=== PATIENT | female | born 1985 | race Caucasian/White ===

== ENCOUNTER 2022-03-20 09:45 | Outpatient (RCR) | payer OTHER, MEDICAID, SELFPAY ==
--- NOTE | 2022-01-30 15:59 | PT.OIE ---
Current Diagnoses Urge incontinence (01/30/22) Visit Care Team Role Provider Type Heydi Choi MD Attending Provider Physician Family Provider Primary Care Provider Referring Provider Specialty: Family Practice Address: [address] [place] [address], [facility] [place], [address] Email: [email or web address] Physical Therapy Initial Evaluation PT-OP-A Visit Information Start: 01/28/22 09:31 Freq: Status: Active Protocol: Document 01/30/22 09:45 AMB (Rec: 02/03/22 15:45 AMB [id number]) Out-Patient Physical Therapy Visit Information Visit Information Visit Type Initial Evaluation Visit Start Time 09:45 Visit Stop Time 10:30 Total Visit Minutes 45 Visit Number 1 PT-OP-B Current Condition Start: 01/28/22 09:31 Freq: Status: Active Protocol: Document 01/30/22 09:45 AMB (Rec: 02/07/22 15:58 AMB [id number]) Current Condition History of Current Condition Onset Date 08/27/2020 Current Complaints stress urinary incontinence History of Current Condition Valeri has had leaking after the of her second child 17 months ago. Denies prolonged pushing, did tear with her first vaginal delivery but not this one. She did have one recent UTI, but it is since resolved. She notes the leaking with a strong cough/ sneeze. Maybe 5 leaks per month. Personal Factors Other Personal Factors That May Effect Currently lactating Therapy/Recovery PT-OP-C Subjective Start: 01/28/22 09:31 Freq: Status: Active Protocol: Document 01/30/22 09:45 AMB (Rec: 02/07/22 15:58 AMB [id number]) Patient Questionnaires Pelvic Pain and Urgency/Frequency Patient Symptom Scale Pelvic Pain Score 11 PT-OP-I Pelvic Floor Start: 01/28/22 09:31 Freq: Status: Active Protocol: Document 01/30/22 09:45 AMB (Rec: 02/07/22 15:58 AMB [id number]) Pelvic Floor Assessment Urine Pelvic Floor Surgery No Leakage Size Small Leakage Cause Cough,Exercise,Sneeze Leaks Per Day 5/month Voiding Frequency 10/day Nocturia 1 Urine Pad Type Panty Liner Bowel Other Bowel Symptoms denies constipation Prolapse Prolapse Comments No prolapse visualized SEMG (uV) Baseline 1 Quick Contraction 14 Recruitment Pattern Good Relaxation Good Holding Good Stability of Hold Good SEMG Stability of Rest Good Contraction Ability Voluntary Contraction Moderate Voluntary Relaxation Moderate Manual Muscle Testing Left 3 Manual Muscle Testing Right 3 Manual Muscle Testing Anterior 3 Manual Muscle Testing Posterior 3 Muscle Endurance (Seconds) 4 Number of Quick Contractions In 10 4 Seconds PT-OP-T Assessment and Plan Start: 01/28/22 09:31 Freq: Status: Active Protocol: Document 01/30/22 09:45 AMB (Rec: 02/07/22 15:58 AMB [id number]) Physical Therapy Assessment Rehab Potential Rehabilitation Potential Good Evaluation Complexity Number of Personal Factors/Comorbidities 0 Number of Body Systems Impaired 1-2 Clinical Presentation at Evaluation Stable Impairments Impairments Functional Activities,Strength Goals Two Impairment Continence Short Term Goal (STG) Valeri will be able to cough without leaking urine. STG Duration 6 weeks One Impairment Strength Claim Service Representative Goal (LTG) Valeri will maintain a pelvic floor conraction for 10 seconds in standing to show improved pelvic floor strength . LTG Duration 12 weeks Assessment Summary Assessment Valeri attends physical therapy with urinary stress incontinence that has persisted for 17 months post . Her pelvic floor strenght was moderate with 3/5 stength and 14microhertz on biofeedback. She would benefit from further strengthening to progress her given the length of time her symptoms have been present. Physical Therapy Plan Frequency and Duration Frequency of Treatment 1x/Week Duration of Treatment 12 weeks Plan of Care Start Date 01/30/22 Plan of Care End Date 04/24/22 Therapeutic Interventions Therapeutic Interventions Home Exercise Program,Manual Therapy,Neuromuscular Re- education,Self-Care/Home Management,Therapeutic Activities,Therapeutic Exercises Modalities Biofeedback,Electric Stimulation Next Visit Focus/Plan Next Note Type Treatment Note Next Visit Plan continue biofeedback
--- NOTE | 2022-01-30 16:02 | PT.OPPOC ---
Physical, Occupational & Speech Therapy At [facility] Current Diagnoses Urge incontinence (01/30/22) Visit Care Team Role Provider Type Heydi Choi MD Attending Provider Physician Family Provider Primary Care Provider Referring Provider Specialty: Family Practice Address: [address] [place] [address], [id number] Email: [email or web address] Plan Of Care PT-OP-T Assessment and Plan Start: 01/28/22 09:31 Freq: Status: Active Protocol: Document 01/30/22 09:45 AMB (Rec: 02/07/22 15:58 AMB [id number]) Physical Therapy Assessment Rehab Potential Rehabilitation Potential Good Evaluation Complexity Number of Personal Factors/Comorbidities 0 Number of Body Systems Impaired 1-2 Clinical Presentation at Evaluation Stable Impairments Impairments Functional Activities,Strength Goals Two Impairment Continence Short Term Goal (STG) Valeri will be able to cough without leaking urine. STG Duration 6 weeks One Impairment Strength Group Home Goal (LTG) Valeri will maintain a pelvic floor conraction for 10 seconds in standing to show improved pelvic floor strength . LTG Duration 12 weeks Assessment Summary Assessment Valeri attends physical therapy with urinary stress incontinence that has persisted for 17 months post . Her pelvic floor strength was moderate with 3/5 strength and 14microhertz on biofeedback. She would benefit from further strengthening to progress her given the length of time her symptoms have been present. Physical Therapy Plan Frequency and Duration Frequency of Treatment 1x/Week Duration of Treatment 12 weeks Plan of Care Start Date 01/30/22 Plan of Care End Date 04/24/22 Therapeutic Interventions Therapeutic Interventions Home Exercise Program,Manual Therapy,Neuromuscular Re- education,Self-Care/Home Management,Therapeutic Activities,Therapeutic Exercises Modalities Biofeedback,Electric Stimulation Next Visit Focus/Plan Next Note Type Treatment Note Next Visit Plan continue biofeedback Plan of Care Dates Plan of Care Start Date 01/30/22 Plan of Care End Date 04/24/22 Electronically Signed by: Marii Rodriguez, PT 02/07/22 0308 If you are in agreement with this Plan of Care, please return a signed and dated copy. I have reviewed this Plan of Care and certify that the skilled therapy services above are required to meet the patient?s needs. Physician Signature Date Printed Name and Credentials Clinical Instructor Signature Printed Name and Credentials
--- NOTE | 2022-02-27 16:37 | PT.OTN ---
Current Diagnoses Urge incontinence (02/27/22) Physical Therapy Treatment Note PT-OP-A Visit Information Start: 01/28/22 09:31 Freq: Status: Active Protocol: Document 02/27/22 09:46 AMB (Rec: 02/27/22 10:30 AMB [id number]) Out-Patient Physical Therapy Visit Information Visit Information Visit Type Treatment Note Visit Start Time 09:45 Visit Stop Time 10:30 Total Visit Minutes 45 Visit Number 2 PT-OP-B Current Condition Start: 01/28/22 09:31 Freq: Status: Active Protocol: Document 01/30/22 09:45 AMB (Rec: 02/07/22 15:58 AMB [id number]) Current Condition History of Current Condition Onset Date 08/27/2020 Current Complaints stress urinary incontinence History of Current Condition Vaelri has had leaking after the of her second child 17 months ago. Denies prolonged pushing, did tear with her first vaginal delivery but not this one. She did have one recent UTI, but it is since resolved. She notes the leaking with a strong cough/ sneeze. Maybe 5 leaks per month. Personal Factors Other Personal Factors That May Effect Currently lactating Therapy/Recovery PT-OP-C Subjective Start: 01/28/22 09:31 Freq: Status: Active Protocol: Document 02/27/22 09:46 AMB (Rec: 02/27/22 10:30 AMB [id number]) OP-PT Subjective Patient Comments Patient Comments Pt states things are going well, not noticing as much leaking more with just cough/ sneeze. PT-OP-I Pelvic Floor Start: 01/28/22 09:31 Freq: Status: Active Protocol: Document 01/30/22 09:45 AMB (Rec: 02/07/22 15:58 AMB [id number]) Pelvic Floor Assessment Urine Pelvic Floor Surgery No Leakage Size Small Leakage Cause Cough,Exercise,Sneeze Leaks Per Day 5/month Voiding Frequency 10/day Nocturia 1 Urine Pad Type Panty Liner Bowel Other Bowel Symptoms denies constipation Prolapse Prolapse Comments No prolapse visualized SEMG (uV) Baseline 1 Quick Contraction 14 Recruitment Pattern Good Relaxation Good Holding Good Stability of Hold Good SEMG Stability of Rest Good Contraction Ability Voluntary Contraction Moderate Voluntary Relaxation Moderate Manual Muscle Testing Left 3 Manual Muscle Testing Right 3 Manual Muscle Testing Anterior 3 Manual Muscle Testing Posterior 3 Muscle Endurance (Seconds) 4 Number of Quick Contractions In 10 4 Seconds PT-OP-Q Treatments Start: 01/28/22 09:31 Freq: Status: Active Protocol: Document 02/27/22 09:45 AMB (Rec: 02/27/22 16:37 AMB [id number]) Therapeutic Exercises Sitting Exercises 1 Sitting Exercise Name roll in roll out Equipment Used #3 t band Reps/Minutes 2x10 Standing Exercises 2 Standing Exercise Name standing with WBOS Comments with quick flick and long hold 1 Standing Exercise Name sit to stand Comments with pelvic floor contract PT-OP-T Assessment and Plan Start: 01/28/22 09:31 Freq: Status: Active Protocol: Document 02/27/22 09:46 AMB (Rec: 02/27/22 10:30 AMB [id number]) Physical Therapy Assessment Goals Two Impairment Continence Short Term Goal (STG) Valeri will be able to cough without leaking urine. STG Duration 6 weeks One Impairment Strength Prison Goal (LTG) Valeri will maintain a pelvic floor conraction for 10 seconds in standing to show improved pelvic floor strength . LTG Duration 12 weeks Assessment Summary Assessment Valeri did well with seated exercises, standing exercises were slightly more challenging , but doable. Does note leaking about 1x/week at this point with cough/sneeze. Physical Therapy Plan Next Visit Focus/Plan Next Note Type Treatment Note Next Visit Plan progress standing exercises HEP: roll in roll out contract with sit to stand.
--- NOTE | 2022-03-20 10:59 | PT.OTN ---
Current Diagnoses Urge incontinence (03/20/22) Physical Therapy Treatment Note PT-OP-A Visit Information Start: 01/28/22 09:31 Freq: Status: Active Protocol: Document 03/20/22 09:45 AMB (Rec: 03/20/22 10:33 AMB [id number]) Out-Patient Physical Therapy Visit Information Visit Information Visit Type Treatment Note Visit Start Time 09:45 Visit Stop Time 10:30 Total Visit Minutes 45 Visit Number 3 PT-OP-B Current Condition Start: 01/28/22 09:31 Freq: Status: Active Protocol: Document 01/30/22 09:45 AMB (Rec: 02/07/22 15:58 AMB [id number]) Current Condition History of Current Condition Onset Date 08/27/2020 Current Complaints stress urinary incontinence History of Current Condition Valeri has had leaking after the of her second child 17 months ago. Denies prolonged pushing, did tear with her first vaginal delivery but not this one. She did have one recent UTI, but it is since resolved. She notes the leaking with a strong cough/ sneeze. Maybe 5 leaks per month. Personal Factors Other Personal Factors That May Effect Currently lactating Therapy/Recovery PT-OP-C Subjective Start: 01/28/22 09:31 Freq: Status: Active Protocol: Document 03/20/22 09:45 AMB (Rec: 03/20/22 10:33 AMB [id number]) OP-PT Subjective Patient Comments Patient Comments Pt hasn't noticed much leaking lately. PT-OP-I Pelvic Floor Start: 01/28/22 09:31 Freq: Status: Active Protocol: Document 01/30/22 09:45 AMB (Rec: 02/07/22 15:58 AMB [id number]) Pelvic Floor Assessment Urine Pelvic Floor Surgery No Leakage Size Small Leakage Cause Cough,Exercise,Sneeze Leaks Per Day 5/month Voiding Frequency 10/day Nocturia 1 Urine Pad Type Panty Liner Bowel Other Bowel Symptoms denies constipation Prolapse Prolapse Comments No prolapse visualized SEMG (uV) Baseline 1 Quick Contraction 14 Recruitment Pattern Good Relaxation Good Holding Good Stability of Hold Good SEMG Stability of Rest Good Contraction Ability Voluntary Contraction Moderate Voluntary Relaxation Moderate Manual Muscle Testing Left 3 Manual Muscle Testing Right 3 Manual Muscle Testing Anterior 3 Manual Muscle Testing Posterior 3 Muscle Endurance (Seconds) 4 Number of Quick Contractions In 10 4 Seconds PT-OP-Q Treatments Start: 01/28/22 09:31 Freq: Status: Active Protocol: Document 03/20/22 10:49 AMB (Rec: 03/20/22 10:54 AMB [id number]) Therapeutic Exercises Standing Exercises 4 Standing Exercise Name shoulder flexion to shoulder height Reps/Minutes 2x10 Comments 3#, contract pelvic floor 3 Standing Exercise Name lift 10# from floor to waist Comments with pelvic floor contract 2 Standing Exercise Name standing with WBOS Comments with quick flick and long hold 1 Standing Exercise Name sit to stand Comments with pelvic floor contract PT-OP-T Assessment and Plan Start: 01/28/22 09:31 Freq: Status: Active Protocol: Document 03/20/22 09:45 AMB (Rec: 03/20/22 10:33 AMB [id number]) Physical Therapy Assessment Goals Two Impairment Continence Short Term Goal (STG) Valeri will be able to cough without leaking urine. STG Duration 6 weeks One Impairment Strength Grade And Center Marker Goal (LTG) Valeri will maintain a pelvic floor conraction for 10 seconds in standing to show improved pelvic floor strength . LTG Duration MET Assessment Summary Assessment Has been improving, no leaking with burpees. Hasn't coughed or sneezed much but does think things are better. WAs able to tolerate all exercises today, encouraged to find times to contract pelvic floor - with her current exercise program, ever time she moves from sit to stand, every time she washes her hands. Physical Therapy Plan Hold Physical Therapy Reason For Hold Canceled remaining appointments as pt is not currently experiencing leaks, and should be able to continue exercises independently, will put on hold for 30 days before discharge so she has time to progress exercises/ running and reach out to clinic if she has any concerns .
--- NOTE | 2022-05-04 15:55 | PT.OPDS ---
Current Diagnoses Urge incontinence (03/20/22) Visit Care Team Role Provider Type Heydi Choi MD Attending Provider Physician Family Provider Primary Care Provider Referring Provider Specialty: Family Practice Address: [address] [place] [address], [facility], [place], [address] Email: [email or web address] Visit Number Visit Number 3 Discharge Summary PT-OP-B Current Condition Start: 01/28/22 09:31 Freq: Status: Active Protocol: Document 01/30/22 09:45 AMB (Rec: 02/07/22 15:58 AMB [id number]) Current Condition History of Current Condition Onset Date 08/27/2020 Current Complaints stress urinary incontinence History of Current Condition Valeri has had leaking after the of her second child 17 months ago. Denies prolonged pushing, did tear with her first vaginal delivery but not this one. She did have one recent UTI, but it is since resolved. She notes the leaking with a strong cough/ sneeze. Maybe 5 leaks per month. Personal Factors Other Personal Factors That May Effect Currently lactating Therapy/Recovery PT-OP-C Subjective Start: 01/28/22 09:31 Freq: Status: Active Protocol: Document 03/20/22 09:45 AMB (Rec: 03/20/22 10:33 AMB [id number]) OP-PT Subjective Patient Comments Patient Comments Pt hasn't noticed much leaking lately. PT-OP-I Pelvic Floor Start: 01/28/22 09:31 Freq: Status: Active Protocol: Document 01/30/22 09:45 AMB (Rec: 02/07/22 15:58 AMB [id number]) Pelvic Floor Assessment Urine Pelvic Floor Surgery No Leakage Size Small Leakage Cause Cough,Exercise,Sneeze Leaks Per Day 5/month Voiding Frequency 10/day Nocturia 1 Urine Pad Type Panty Liner Bowel Other Bowel Symptoms denies constipation Prolapse Prolapse Comments No prolapse visualized SEMG (uV) Baseline 1 Quick Contraction 14 Recruitment Pattern Good Relaxation Good Holding Good Stability of Hold Good SEMG Stability of Rest Good Contraction Ability Voluntary Contraction Moderate Voluntary Relaxation Moderate Manual Muscle Testing Left 3 Manual Muscle Testing Right 3 Manual Muscle Testing Anterior 3 Manual Muscle Testing Posterior 3 Muscle Endurance (Seconds) 4 Number of Quick Contractions In 10 4 Seconds PT-OP-T Assessment and Plan Start: 01/28/22 09:31 Freq: Status: Active Protocol: Document 05/04/22 15:54 AMB (Rec: 05/04/22 15:55 AMB [id number]) Physical Therapy Assessment Goals Two Impairment Continence Short Term Goal (STG) Valeri will be able to cough without leaking urine. STG Duration MET One Impairment Strength Mcfp Goal (LTG) Valeri will maintain a pelvic floor conraction for 10 seconds in standing to show improved pelvic floor strength . LTG Duration MET Assessment Summary Assessment At her last visit, Valeri Had been improving, no leaking with burpees. Hasn't coughed or sneezed much but does think things are better. WAs able to tolerate all exercises today, encouraged to find times to contract pelvic floor - with her current exercise program, ever time she moves from sit to stand, every time she washes her hands. Put Valeri on hold for one month so she would have time to reach out if she had issues, she has not called the clinic, she is therefore discharged at this time for meeting her goals Physical Therapy Plan Discharge Physical Therapy Discharge Reasons Goals Met
== END 2022-05-08 14:39 ==
LOC: PHYS 09:45
PROVIDERS: Family Provider Student in an Organized Health Care Education/Training Program; PCP Student in an Organized Health Care Education/Training Program; Referring Provider Student in an Organized Health Care Education/Training Program; Visit Provider Student in an Organized Health Care Education/Training Program
DX: N39.41 Urge incontinence (principal)
CPT/HCPCS: 97110; 97161

== ENCOUNTER → 2022-04-16 11:14 | Outpatient (CLI) | payer OTHER, MEDICAID, SELFPAY | PROVIDERS: Family Provider Student in an Organized Health Care Education/Training Program; PCP Student in an Organized Health Care Education/Training Program; Visit Provider Physician Assistant | DX: R30.0 Dysuria (principal) | CPT/HCPCS: 81002; 87077; 87086; 87186 ==

== ENCOUNTER → 2024-08-21 10:24 | Outpatient (CLI) | payer OTHER, SELFPAY ==
--- NOTE | 2024-08-21 10:26 | DI.RAD.S_ITS ---
PROCEDURE: XR CHEST 2V INDICATIONS: Acute cough TECHNIQUE: 2 views of the chest were acquired. COMPARISON: None. FINDINGS: Heart, mediastinum and pulmonary vascular: Heart is normal in size and configuration. Mediastinum is unremarkable. Pulmonary vascular is normal. Lungs: Clear Pleural spaces: Normal-no effusions or pneumothorax. Bones and soft tissues: Normal IMPRESSION: Normal chest. Dictated by: Josse Armstrong M.D. on 08/22/2024 at 10:00 Approved by: Josse Armstrong M.D. on 08/22/2024 at 10:01
== END ==
PROVIDERS: Family Provider Student in an Organized Health Care Education/Training Program; PCP Family Medicine; Referring Provider Family Medicine; Visit Provider Family Medicine
DX: R05.1 Acute cough (principal)
CPT/HCPCS: 71046

== ENCOUNTER → 2024-09-05 13:17 | Outpatient (CLI) | payer OTHER, SELFPAY ==
--- NOTE | 2024-09-05 13:20 | DI.US.S_ITS ---
LIMITED ULTRASOUND OF LEFT BREAST: 09/05/2024 CLINICAL: Palpable left breast lump. Comparison is made to exam dated: 09/05/2024 mammogram - [facility]. Color flow and real-time ultrasound of the left breast upper outer quadrant were performed. Olea scale images of the real-time examination were reviewed. IMPRESSION: NEGATIVE There is no sonographic evidence of malignancy. There is no abnormality seen in the left breast to correspond with the palpable abnormality, however, clinical followup is recommended. A 3 year screening mammogram is recommended. This exam was interpreted at Station ID: [id number]. Electronically Signed By: Joshua cope/shayy:09/05/2024 21:43:51 ACR BI-RADS Category 1: Negative
--- NOTE | 2024-09-05 13:20 | DI.US.S_ITS ---
LIMITED ULTRASOUND OF RIGHT BREAST: 09/05/2024 CLINICAL: Palpable right breast lump. Comparison is made to exam dated: 09/05/2024 mammogram - [facility]. Color flow and real-time ultrasound of the right breast upper outer quadrant were performed. Olea scale images of the real-time examination were reviewed. IMPRESSION: NEGATIVE There is no sonographic evidence of malignancy. There is no abnormality seen in the right breast to correspond with the palpable abnormality, however, clinical followup is recommended. A 3 year screening mammogram is recommended. This exam was interpreted at Station ID: [id number]. Electronically Signed By: Joshua cope/shayy:09/05/2024 21:43:23 letter sent: Clinical Evaluation ACR BI-RADS Category 1: Negative
--- NOTE | 2024-09-05 13:20 | DI.MG.S_ITS ---
BILATERAL DIGITAL DIAGNOSTIC MAMMOGRAM 3D/2D: 09/05/2024 CLINICAL: Baseline exam. Bilateral breast masses. No prior exams were available for comparison. The breasts are extremely dense, which lowers the sensitivity of mammography (category d />75% glandular tissue). No significant masses, calcifications, or other findings are seen in either breast. IMPRESSION: INCOMPLETE: NEED ADDITIONAL IMAGING EVALUATION There is no abnormality seen in either breast to correspond with the palpable abnormality in the upper outer quadrant, however, ultrasound is recommended. Based on Tyrer-Cuzick model (a risk assessment model), the patient's lifetime risk is 30.7% and her 10 year risk is 3.2%. If a patient has an elevated risk, a more comprehensive evaluation should be considered and/or a referral to a genetic counselor. The [place] [employer], [employer] [employer], and NCCN Guidelines advise the consideration of Breast MRI as an adjunct to screening mammography in patients whose Lifetime risk to develop breast cancer is 20% or higher. This exam was interpreted at Station ID: [id number]. NOTE: For mammograms, a report in lay terms will be sent to the patient. Approximately 15% of breast malignancies will not be visualized mammographically. In the management of a palpable breast mass, a negative mammogram must not discourage biopsy of a clinically suspicious lesion. Electronically Signed By: Joshua Nichols M.D. ar/:09/05/2024 21:40:00 Entry: - 09/09/2024 16:34:09 letter sent: Need Ultrasound ACR BI-RADS Category 0: Incomplete: Need Additional Imaging Evaluation
== END ==
PROVIDERS: Family Provider Student in an Organized Health Care Education/Training Program; PCP Family Medicine; Referring Provider Internal Medicine; Visit Provider Internal Medicine
DX: R92.2 Inconclusive mammogram (principal); N63.21 Unspecified lump in the left breast, upper outer quadrant; N63.11 Unspecified lump in the right breast, upper outer quadrant; R92.343 Mammographic extreme density, bilateral breasts
CPT/HCPCS: 76642; 77066; G0279